=== PATIENT | male | born 1980 | race Caucasian/White ===

== ENCOUNTER 2016-11-28 17:05 | Emergency (ER) | payer MEDICAID ==
[2016-11-28 19:33] VITALS: BP 139/60
== END 2016-11-28 19:33 | disposition home or self-care (01) ==
LOC: ED 17:05
DX: M54.42 Lumbago with sciatica, left side (principal); L40.9 Psoriasis, unspecified

== ENCOUNTER 2017-02-08 14:37 | Emergency (ER) | payer MEDICAID ==
[2017-02-08 17:33] VITALS: BP 120/73
== END 2017-02-08 17:33 | disposition home or self-care (01) ==
LOC: ED 14:37
DX: S90.31XA Contusion of right foot, initial encounter (principal); W20.8XXA Other cause of strike by thrown, projected or falling object, initial encounter; Y93.89 Activity, other specified; Y99.8 Other external cause status; Y92.89 Other specified places as the place of occurrence of the external cause

== ENCOUNTER 2017-05-03 01:43 | Emergency (ER) | payer MEDICAID ==
[2017-05-03 03:57] VITALS: BP 145/86
== END 2017-05-03 03:57 | disposition left against medical advice (07) ==
LOC: ED 01:43
DX: R10.9 Unspecified abdominal pain (principal); Z53.21 Procedure and treatment not carried out due to patient leaving prior to being seen by health care provider

== ENCOUNTER 2017-09-10 09:01 | Emergency (ER) | payer MEDICAID ==
[~2017-09-10] VITALS: Ht 167.6 cm; Wt 85.3 kg
[2017-09-10 09:05] VITALS: Ht 167.6 cm; Wt 85.3 kg
[2017-09-10 09:41] LABS: BASOPHIL % 0.2 % (0-2); PLATELET COUNT 226 x10^3mcL (130-400); RED CELL DISTRIBUTION WIDTH 13.7 % (11.5-14.5)
[2017-09-10 09:53] LABS: CALCIUM 8.7 mg/dL (8.5-10.1); CARBON DIOXIDE 29.2 mmol/L (21-32); CHLORIDE SERUM 100 mmol/L (98-107); CREATININE SERUM 1.1 mg/dL (0.7-1.3); GFR1 > 60 mL/min; GLUCOSE SERUM 134 mg/dL (74-106); POTASSIUM SERUM 3.3 mmol/L (3.5-5.1); SODIUM SERUM 137 mmol/L (136-145)
[2017-09-10 09:57] LABS: ALBUMIN 3.7 g/dL (3.4-5.0); ALKALINE PHOSPHATASE 119 U/L (46-116); ALT/SGPT 58 U/L (16-63); AMYLASE 32 U/L (25-115); AST/SGOT 45 U/L (15-37); BILIRUBIN TOTAL 1.4 mg/dL (0.20-1.00); LIPASE 144 IU/L (73-393); TOTAL PROTEIN, SERUM 7.8 g/dL (6.4-8.2)
[2017-09-10 10:50] VITALS: BP 141/77
== END 2017-09-10 10:50 | disposition home or self-care (01) ==
LOC: ED 09:01
PROVIDERS: Emergency Medicine
DX: R10.9 Unspecified abdominal pain (principal)
CPT/HCPCS: 36415; 83880; J1885

== ENCOUNTER 2018-05-08 09:53 | Emergency (ER) | payer MEDICAID ==
[2018-05-08 11:10] VITALS: BP 131/77
== END 2018-05-08 11:10 | disposition home or self-care (01) ==
LOC: ED 09:53
DX: M54.12 Radiculopathy, cervical region (principal)